=== PATIENT | male | born 1995 | race African-American/Black ===

== ENCOUNTER → 2018-07-02 | Outpatient (CLI) | payer OTHER ==
--- NOTE | 2018-07-03 09:12 | EEG ---
DATE OF PROCEDURE: 07/02/2018 REFERRING PHYSICIAN: Dr. Amilcar Ricardo. DIAGNOSIS: Seizure. EEG#: [id number] HISTORY: The patient is a 23-year-old male who has history of seizures in 2013 and 2017. Last seizure was in 2017. This EEG was done to rule out epileptic potential. He has history of right-sided drug-induced myoclonus. TECHNICAL DESCRIPTION: This digital EEG was recorded by 21 scalp ear and two EKG electrodes and was reviewed in bipolar and referential montages following reformatting in 10-20 international electrode placement system. INTERPRETATION: The patient was noted to be in awake and drowsy states during this EEG. Resting awake background rhythm consisted of well-formed posterior dominant rhythm with anterior/posterior gradient comprising of 12 Hz alpha activity measuring 15 - 50 microvolts in amplitude which was symmetric and reactive to eye opening. Anteriorly low voltage and mixed frequency activity was noted. Stage I and II sleep were reviewed and were symmetric bilaterally. Hyperventilation and photic stimulation remained unremarkable. EKG revealed normal sinus rhythm. No focal, lateralizing or epileptiform abnormalities were seen. No clinical or electrographic seizures were recorded. CONCLUSION: This EEG in awake, drowsy states, stage I and II sleep is within normal limits.
== END ==
LOC: M SLEEP 08:49
PROVIDERS: ATTEND Surgery
DX: R56.9 Unspecified convulsions (principal)